=== PATIENT | female | born 1960 | race Two or more races ===

== ENCOUNTER → 2024-08-08 | Outpatient (CLI) | payer MEDICAID, SELFPAY ==
--- NOTE | 2024-08-08 12:30 | XR_ITS ---
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 Anterior, posterior whole body images are obtained. Images have been obtained including the lower extremities. Findings: Minor increased uptake about the ankles and about the left hip arthroplasty No pattern diagnostic for osseous metastatic disease IMPRESSION: No pattern diagnostic for osseous metastatic disease
== END | disposition home or self-care (01) ==
LOC: SNUC 08:49
PROVIDERS: Referring Provider Internal Medicine Hematology & Oncology; Visit Provider Internal Medicine Hematology & Oncology
DX: C50.312 Malignant neoplasm of lower-inner quadrant of left female breast (principal)
CPT/HCPCS: 78306; A9503

== ENCOUNTER 2024-09-06 06:45 | Day surgery (SDC) | payer MEDICAID, SELFPAY ==
[2024-09-05 10:35] VITALS: BMI 40.2
[2024-09-06] VITALS (8 sets, daily range): BP systolic 103–152; BP diastolic 52–84; PULSE 81–86; RESP 18–21; TEMP 36.4–36.6; O2SAT 96–100; BMI 39.9
[2024-09-06] MEDS: DiphenhydrAMINE INJ 50 MG/ML VIAL 25 MG IVP (07:52)
[2024-09-06] MEDS: fentaNYL CIT INJ 50 mCg/ML AMP 2ML (ASD USE ONLY) IVP ×2 (07:52→07:55)
[2024-09-06] MEDS: SODIUM CHLORIDE 0.9% 500 ML 500 ML 125 ML IV (07:52)
[2024-09-06] MEDS: MIDAZOLAM INJ 1 MG/ML VIAL 2 ML (ASD USE ONLY) 4 MG (07:56)
[2024-09-06] MEDS: MIDAZOLAM INJ 1 MG/ML VIAL 2 ML (ASD USE ONLY) 2 MG IVP (08:00)
== END 2024-09-06 08:40 | disposition home or self-care (01) ==
PROVIDERS: PCP Nurse Practitioner Family; Referring Provider Surgery; Visit Provider Surgery
PROC: 0DBE8ZX Excision of Large Intestine, Via Natural or Artificial Opening Endoscopic, Diagnostic (ICD-10-PCS; CPT 45380; principal; 2024-09-06 08:00)
DX: K64.1 Second degree hemorrhoids (principal); K57.31 Diverticulosis of large intestine without perforation or abscess with bleeding
CPT/HCPCS: 45378; J1200; J2250; J3010; J7040